=== PATIENT | male | born 1990 | race Caucasian/White ===

== ENCOUNTER 2016-07-17 18:13 | Emergency (ER) | payer OTHER ==
[~2016-07-17] VITALS: Wt 63.5 kg
[~2016-07-17 18:13] MED LIST: BACTRIM DS 8001 TA1 PO; FLEXERIL5 MG PO; HYDROCODONE BIT1 T11 PO; MEDROL DOSEPAK4 MG PO; PREDNICOT20 MG PO
[2016-07-17] MEDS ORDERED: ROBITUSSIN AC 110 ML PO (19:11)
[2016-07-17] MEDS ORDERED: FLONASE ALLERG9.9 ML NAS (19:11)
== END 2016-07-17 19:31 | disposition home or self-care (01) ==
LOC: ED 18:13
DX: B34.9 Viral infection, unspecified (principal); Z88.6 Allergy status to analgesic agent

== ENCOUNTER 2017-06-21 15:43 | Emergency (ER) | payer OTHER ==
[~2017-06-21] VITALS: Ht 160 cm; Wt 76.2 kg
[~2017-06-21 15:43] MED LIST changes: +FLONASE ALLERG9.9 ML NAS; +ROBITUSSIN AC 110 ML PO
[2017-06-21] MEDS ORDERED: CLINDAMYCIN150 MG PO (16:26)
[2017-06-21] MEDS ORDERED: Peridex 473 ML473 ML PO (16:26)
== END 2017-06-21 16:25 | disposition home or self-care (01) ==
LOC: ED 15:43
DX: K04.7 Periapical abscess without sinus (principal); Z88.8 Allergy status to other drugs, medicaments and biological substances